=== PATIENT | female | born 1960 | race Two or more races ===

== ENCOUNTER 2019-02-05 12:27 | Outpatient (CLI) | payer OTHER ==
[2019-02-11] MEDS ORDERED: [UNRECOGNIZED DRUG - OTHER] PO (08:10)
== END 2019-02-05 12:36 | disposition home or self-care (01) ==
LOC: RAD 12:27
DX: M25.571 Pain in right ankle and joints of right foot (principal); M79.671 Pain in right foot

== ENCOUNTER 2019-02-09 09:12 | Outpatient (CLI) | payer OTHER ==
[2019-02-11] MEDS ORDERED: [UNRECOGNIZED DRUG - OTHER] PO (08:10)
== END 2019-02-09 09:35 | disposition home or self-care (01) ==
LOC: LAB 09:12
DX: Z76.89 Persons encountering health services in other specified circumstances (principal); I49.8 Other specified cardiac arrhythmias; D64.89 Other specified anemias; D68.8 Other specified coagulation defects; E88.89 Other specified metabolic disorders; N39.0 Urinary tract infection, site not specified; Z22.322 Carrier or suspected carrier of Methicillin resistant Staphylococcus aureus; E13.69 Other specified diabetes mellitus with other specified complication; E55.9 Vitamin D deficiency, unspecified

== ENCOUNTER 2019-02-09 10:26 | Outpatient (CLI) | payer OTHER ==
[2019-02-11] MEDS ORDERED: [UNRECOGNIZED DRUG - OTHER] PO (08:10)
== END 2019-02-09 10:50 | disposition home or self-care (01) ==
LOC: RAD 10:26
DX: Z76.89 Persons encountering health services in other specified circumstances (principal)

== ENCOUNTER 2019-02-12 07:57 | Day surgery (SDC) | payer OTHER ==
[~2019-02-12 07:57] MED LIST: [UNRECOGNIZED DRUG - OTHER] PO
== END 2019-02-12 18:10 | disposition home or self-care (01) ==
LOC: CIR.AMB 07:57
DX: S82.61XP Displaced fracture of lateral malleolus of right fibula, subsequent encounter for closed fracture with malunion (principal); S93.431A Sprain of tibiofibular ligament of right ankle, initial encounter